=== PATIENT | male | born 1970 | race Caucasian/White ===

== ENCOUNTER 2024-03-29 19:25 | Emergency (ER) | payer BC ==
[~2024-03-29] VITALS: Ht 188 cm; Wt 110.0 kg
[2024-03-29 19:35] VITALS: O2SAT 100
[2024-03-29 21:45] LABS: BASOPHILS % 0.3 % (0.0-2.0); EOSINOPHILS % 1.8 % (0.0-5.0); HEMATOCRIT. 42.8 % (42.0-52.0); HEMOGLOBIN. 14.7 g/dL (14.0-18.0); LYMPHOCYTES % 24.5 % (20.0-50.0); MEAN CORPUSCULAR HEMOGLOBIN 32.7 pg (28.0-32.0); MEAN CORPUSCULAR HGB CONC 34.4 g/dL (31.0-37.0); MEAN CORPUSCULAR VOLUME 94.9 fL (80.0-94.0); MEAN PLATELET VOLUME 7.4 fl (7.4-10.4); NEUTROPHILS % 63.4 % (40.0-76.0); PLATELET 204 x1000/uL (130-400); RED BLOOD CELL COUNT 4.51 mill/uL (4.7-6.1); RED CELL DISTRIBUTION WIDTH 13.4 % (11.6-14.6); WHITE BLOOD COUNT 6.1 x1000/uL (4.5-11.0)
[2024-03-29 21:50] LABS: CHLORIDE 109 mEq/L (98-107); SODIUM 146 mEq/L (136-145)
[2024-03-29 21:51] LABS: CALCIUM 9.7 mg/dL (8.7-10.4); CARBON DIOXIDE 27 mEq/L (21-32)
[2024-03-29 21:56] LABS: CREATININE 1.1 mg/dL (0.6-1.3); UREA NITROGEN BLOOD 19 mg/dL (9-23)
[2024-03-29 21:59] LABS: TROPONIN I HIGH SENSITIVITY 4 ng/L (3.0-53)
[2024-03-29 22:22] LABS: GLUCOSE 105 mg/dL (70-105)
[2024-03-29 22:50] VITALS: BP 136/66; PULSE 98; RESP 16; TEMP 36.66960; O2SAT 100
== END 2024-03-29 23:40 | disposition home or self-care (01) ==
LOC: ER 19:25
DX: R07.9 Chest pain, unspecified (principal); I10 Essential (primary) hypertension; F19.90 Other psychoactive substance use, unspecified, uncomplicated; Z85.9 Personal history of malignant neoplasm, unspecified; Z88.0 Allergy status to penicillin
CPT/HCPCS: 99285; 71045; 80048; 83880; 85025; 84484; 36415; 93005; A4663; A4606